=== PATIENT | female | born 1990 | race Caucasian/White ===

== ENCOUNTER → 2016-08-07 | Outpatient (CLI) | payer BC, OTHER ==
[2016-08-07 10:53] LABS: CH 29.3; CHCM 33.5; HCT 31.4 % (34.0-46.0); HDW 2.58; HGB 10.3 gm/dL (11.4-16.0); MCH 28.9 pg (25.0-35.0); MCHC 32.9 g/dL (31.0-37.0); MCV 87.9 fL (80.0-100.0); Mean Platelet Volume 6.2; RBC 3.57 m/uL (3.80-5.40); RDW 13.6 % (11.5-15.5); WBC 15.6 k/uL (3.8-10.6)
[2016-08-07 11:16] LABS: Non-African American GFR(MDRD) >60 (>60 ml/min/1.73 sqM)
[2016-08-07 11:45] LABS: Hepatitis B Surface Ag Index 0.06
[2016-08-08 06:02] LABS: Toxoplasma Antibody (IgG) <3.0 IU/mL (<7.2)
[2016-08-08 07:57] LABS: HIV-1/HIV-2 Ab Screen NONREAC (NON REAC)
== END | disposition home or self-care (01) ==
LOC: LABWHC1 08:47
PROVIDERS: ATTEND Obstetrics & Gynecology
DX: Z34.82 Encounter for supervision of other normal pregnancy, second trimester (principal); Z3A.00 Weeks of gestation of pregnancy not specified
CPT/HCPCS: 36415; 82565; 82950; 85027; 86762; 86777; 86778; 86780; 86850; 86900; 86901; 87340; 87389

== ENCOUNTER → 2016-08-17 | Outpatient (CLI) | payer BC, OTHER ==
[2016-08-17 13:04] LABS: Glucose 3 Hour, Gest 104 mg/dL
== END | disposition home or self-care (01) ==
LOC: LABWHC1 08:38
PROVIDERS: ATTEND Obstetrics & Gynecology
DX: O99.810 Abnormal glucose complicating pregnancy (principal); Z3A.00 Weeks of gestation of pregnancy not specified
CPT/HCPCS: 36415; 82951; 82952

== ENCOUNTER 2016-10-24 10:33 | Outpatient (CLI) | payer BC, OTHER ==
[2016-10-24 10:56] VITALS: PULSE 104; TEMP 97.7
[2016-10-24 12:12] LABS: Appearance,Urine Cloudy (Clear); Bacteria,Urine Occasional /hpf; Bilirubin,Urine Negative (Negative); Glucose,Urine (UA) Negative (Negative); Ketones,Urine Negative (Negative); Leukocyte Esterase,Urine Large (Negative); Mucus,Urine Moderate /hpf; Nitrite,Urine Negative (Negative); PH, Urine 6.5 (5.0-8.0); Particle Count 24742; Protein,Urine 1+ (Negative); RBC,Urine 1 /hpf (0-5); Specific Gravity,Urine 1.023 (1.001-1.035); Squamous Epithelial Cell,Urine 23 /hpf (0-4); UA Billing (MACRO vs. MICRO) MICRO; WBC,Urine 4 /hpf (0-5)
[2016-10-24 12:21] VITALS: BP 166/55; RESP 16
--- NOTE | 2016-11-28 08:26 | P.MSEPDOC ---
Presenting Problems - Arrival Data Date of Arrival on Unit: 10/24/16 Time of Arrival on Unit: 12:25 Mode of Transport: Ambulatory - Complaint OB-Reason for Admission/Chief Complaint: Acute Nausea/Vomiting, Other Comment: threw up at 0800 this am x 1 and last emesis at 5 pm last evining. states small emesis this am but has kept down ice cream sandwich this am. right groin pain when ambulating or sitting upright. Medical History - Information : 3 Para: 2 Term: 2 : 0 Abortions: Spontaneous or Elective: 0 Number of Living Children: 2 - Gestational Age Expected Date of Delivery: 11/26/16 Gestational Age by EUGENE (wks/days): 40 Weeks and 2 Days - History Complications: Prior Comment: c/s with first and for the second. herpes. never has had a lesion. is positive and is in her blood per lab Review of Systems - Review of Systems Constitutional: No problems Breast: No problems ENT: No problems Cardiovascular: No problems Respiratory: No problems Gastrointestinal: No problems Genitourinary: No problems Musculoskeletal: No problems Neurological: No problems Skin: No problems Vital Signs - Temperature Temperature: 97.7 F Temperature Source: Oral - Pulse Right Brachial Pulse Rate: 104 Pulse Assessment Method: Automatic Cuff - Respirations Respiratory Rate: 16 Oxygen Delivery Method: Room Air - Blood Pressure Right Arm Blood Pressure: 166/55 Blood Pressure Mean: 92 Blood Pressure Source: Automatic Cuff Medical Screen Scoring (Pre) - Cervical Exam Dilation: Exam Deferred - Uterine Contractions Frequency: N/A - Maternal Vital Signs Maternal Temperature: N/A Maternal Blood Pressure: N/A Signs of Preeclampsia: N/A Maternal Respirations: N/A - Maternal Trauma Maternal Trauma: N/A - Assessment Baseline FHR: 135 Heart Rate - NICHD Category: Category I (Normal) = 0 NST: Reactive - Total Score Total Score (Pre): 0 - Level of Risk Level of Risk: Low (0-5) Physician Notification (Pre) - Physician Notified Physician Notified Date: 10/24/16 Physician Notified Time: 11:10 Physician/Practitioner Notifed:: [id number] Spoke With: juanito New Order Received: Yes (urinalysis) Medical Screen Scoring (Post) - Cervical Exam Dilation: Exam Deferred - Uterine Contractions Frequency: N/A Duration: N/A Intensity: N/A - Maternal Trauma Maternal Trauma: N/A - Assessment Heart Rate - NICHD Category: Category I (Normal) = 0 NST: Reactive - Total Score Total Score (Post): 0 - Post Treatment Level of Risk Post Treatment Level of Risk: Low (0-5) Physician Notification (Post) - Physician Notified Physician Notified Date: 10/24/16 Physician Notified Time: 12:21 New Order Received: Yes - Notification Comment Comment: discharge home Disposition - Disposition OB Disposition: Discharge to home, Written follow up instructions reviewed I agree with the RN Medical Screening Exam: Yes Risk & Benefit of care provided described in d/c instruction: Yes Diagnosis: DEHYDRATION Additional Diagnoses: third trimester. emesis
== END 2016-10-24 12:22 | disposition home or self-care (01) ==
LOC: FBPOP 10:33
PROVIDERS: ATTEND Obstetrics & Gynecology
DX: O21.9 Vomiting of pregnancy, unspecified (principal); Z3A.40 40 weeks gestation of pregnancy
CPT/HCPCS: 59025; 81001; 99213

== ENCOUNTER 2016-11-25 23:38 | Inpatient (IN) | payer BC, OTHER ==
[~2016-11-25 23:38] MED LIST: BUPIVACAINE (PF) 0.25% 30 ML VIAL ONE; SODIUM CHLORIDE 0.9% 100 ML BAG ONE; fentaNYL (PF) 50 MCG/ML 5 ML AMP ONE
[2016-11-25] MEDS ORDERED: OXYTOCIN 20 UNITS/1000 ML NS 1,000 ML IV SCH (23:45)
[2016-11-25] MEDS ORDERED: TERBUTALINE 1 MG/ML VIAL SQ PRN (23:52)
[2016-11-25] MEDS ORDERED: METHYLERGONOVINE 0.2 MG/ML 1 ML AMP IM PRN (23:52)
[2016-11-25] MEDS ORDERED: LIDOCAINE 1% (PF) 10 MG/ML (30 ML SDV) SQ PRN (23:52)
[2016-11-25] MEDS ORDERED: CARBOPROST TROMETHAMINE 250 MCG/ML 1 ML AMP IM PRN (23:52)
[2016-11-25] MEDS ORDERED: OXYTOCIN 10 UNIT/ML 1 ML VIAL IM PRN (23:52)
[2016-11-26] MEDS: LACTATED RINGERS 1,000 ML IV SCH ×2 (00:27→03:12)
[2016-11-26 00:32] LABS: Basophils # (A) 0.1 k/uL (0-0.2); Basophils % (A) 1 %; CH 28.9; CHCM 33.3; Eosinophils # (A) 0.5 k/uL (0-0.7); Eosinophils % (A) 3 %; HCT 34.4 % (34.0-46.0); HDW 2.67; HGB 11.4 gm/dL (11.4-16.0); Luc # (Auto) 0.23; Luc % (Auto) 1; Lymphocytes # (A) 2.6 k/uL (1.0-4.8); Lymphocytes % (A) 15 %; MCH 28.8 pg (25.0-35.0); MCV 87.3 fL (80.0-100.0); Mean Platelet Volume 6.8; Monocytes # (A) 0.6 k/uL (0-1.0); Monocytes % (A) 4 %; Neutrophils # (A) 13.2 k/uL (1.3-7.7); Neutrophils % (A) 77 %; RBC 3.95 m/uL (3.80-5.40); RDW 14.4 % (11.5-15.5); WBC 17.1 k/uL (3.8-10.6); WBC (Perox) 17.36
--- NOTE | 2016-11-26 01:58 | P.HPOB ---
History of Present Illness H&P Date: 11/26/16 Chief Complaint: SROM 26 year old presents at 40 weeks gestation with spontaneous rupture of membranes. Her water broke at 2200 on 11/25/2016 and clear fluid noted. When she presented to triage she is 3 cm dilated, 70% effaced, -2 station. She is not blayne. heart tones 145-150 with moderate variability and reactive. She did have a section with her first for heart tones, her second was a vaginal delivery. Review of Systems All systems: negative Constitutional: Denies chills, Denies fever Eyes: denies blurred vision, denies pain Ears, nose, mouth and throat: Denies headache, Denies sore throat Cardiovascular: Denies chest pain, Denies shortness of breath Respiratory: Denies cough Gastrointestinal: Denies abdominal pain, Denies diarrhea, Denies nausea, Denies vomiting Genitourinary: Denies dysuria, Denies hematuria Musculoskeletal: Denies myalgias Integumentary: Denies pruritus, Denies rash Neurological: Denies numbness, Denies weakness Psychiatric: Denies anxiety, Denies depression Endocrine: Denies fatigue, Denies weight change Past Medical History Past Medical History: Asthma Additional Past Medical History / Comment(s): Dyslexia. Obstetric history: First was a section due to heart tones are second was a vaginal delivery this is her third . She's had care with Dr. Minaya since 15 weeks gestation. Blood type is B+, antibodies negative, rubella immune, hepatitis B negative, RPR nonreactive, HIV negative. GBS negative. Abnormal 1 hour but normal 3 hour glucose tolerance test. History of Any Multi-Drug Resistant Organisms: None Reported Past Surgical History: Section Past Anesthesia/Blood Transfusion Reactions: No Reported Reaction Past Psychological History: Anxiety, Depression, Panic Disorder Smoking Status: Current every day smoker Past Alcohol Use History: None Reported Past Drug Use History: None Reported - Past Family History Father Family Medical History: Cancer Additional Family Medical History / Comment(s): lung cancer Mother Family Medical History: No Reported History Medications and Allergies Home Medications Medication Instructions Recorded Confirmed Type Pnv,Calcium 72/Iron/Folic Acid 1 tab PO DAILY 03/25/14 11/25/16 History [Pnv Plus Multivit Tab] Ranitidine HCl [Zantac] 150 mg PO HS 11/25/16 11/25/16 History Allergies Allergy/AdvReac Type Severity Reaction Status Date / Time latex Allergy Rash/Hives Verified 11/25/16 23:51 Exam Osteopathic Statement: *. No significant issues noted on an osteopathic structural exam other than those noted in the History and Physical/Consult. - Vital Signs Vital signs: Vital Signs Temp Pulse Resp BP Pulse Ox 11/26/16 00:00 97.3 F L 101 H 16 127/58 98 11/25/16 23:54 97.3 F L 105 H 18 127/58 98 Intake and Output 11/25/16 11/25/16 11/26/16 14:59 22:59 06:59 Other: Weight 97.522 kg Patient Weight 11/26/16 06:59 Weight 97.522 kg Heart: Regular rate and rhythm Lungs: Clear to auscultation bilaterally Abdomen: Soft, nontender Extremities: Negative Homans sign Results Result Diagrams: 11/26/16 00:15 Abnormal Lab Results - Last 24 Hours (Table) 11/26/16 Range/Units 00:15 WBC 17.1 H (3.8-10.6) k/uL Neutrophils # 13.2 H (1.3-7.7) k/uL Assessment and Plan (1) Spontaneous rupture of membranes Status: Acute Plan: 1. Admit to family place 2. Pitocin augmentation if necessary 3. Anticipate normal vaginal delivery
[2016-11-26] MEDS ORDERED: BUPIVACAINE (PF) 0.25% 30 ML VIAL ONE (02:56)
[2016-11-26] MEDS ORDERED: fentaNYL (PF) 50 MCG/ML 5 ML AMP ONE (02:56)
[2016-11-26] MEDS ORDERED: SODIUM CHLORIDE 0.9% 100 ML BAG ONE (02:56)
[2016-11-26] MEDS ORDERED: ACETAMINOPHEN TAB 325 MG TAB PO PRN (04:49)
[2016-11-26] MEDS ORDERED: ZOLPIDEM 5 MG TAB PO PRN (04:49)
[2016-11-26] MEDS ORDERED: Acetaminophen-Codeine 300-30mg TAB PO PRN ×2 (04:49)
[2016-11-26] MEDS ORDERED: SIMETHICONE 80 MG CHEWABLE PO PRN (04:49)
[2016-11-26] MEDS ORDERED: HYDROCORTISONE 2.5% RECTAL CREAM 30 GM TUBE RECTAL PRN (04:49)
[2016-11-26] MEDS ORDERED: LANOLIN CREAM 5 GM TUBE TOPICAL PRN (04:49)
[2016-11-26] MEDS ORDERED: diphenhydrAMINE 50 MG CAP PO PRN (04:49)
[2016-11-26] MEDS ORDERED: WITCH HAZEL 1 EACH MED..PAD TOPICAL PRN (04:49)
[2016-11-26] MEDS ORDERED: diphenhydrAMINE 25 MG CAP PO PRN (04:49)
[2016-11-26] MEDS ORDERED: diphenhydrAMINE 50 MG/ML 1 ML VIAL IVP PRN ×2 (04:49)
[2016-11-26] MEDS ORDERED: BENZOCAINE SPRAY 57GM TOPICAL PRN (04:49)
--- NOTE | 2016-11-26 04:53 | P.PROBDLV ---
Vaginal Delivery Note - . Vaginal Delivery Note: 26-year-old presented at 40 weeks with spontaneous rupture of membranes. Her water broke at 2200 on 11/25/2016. When she presented to labor and delivery she was 3 cm dilated, 70% effaced, -2 station. She is not blayne. By 1 AM Pitocin was started and she started to contract regularly. She did get an epidural and was comfortable. Her cervix was completely dilated at 4:36 AM, she pushed and delivered a viable female over intact perineum under epidural anesthesia at 4:41 AM. Head delivered OA, nuchal cord 1 easily reduced, anterior shoulder delivered gentle downward traction followed by posterior shoulder and rest of body. Nose and mouth bulb suctioned, cord clamped and cut, infant placed on mother's abdomen. Apgars 9, 9 , weight pending. Placenta delivered spontaneously, intact with three-vessel cord at 4:45 AM. Vagina, cervix, perineum were inspected. No lacerations noted. Estimated blood loss 150 mL. Mother and baby in stable condition.
[2016-11-26] MEDS ORDERED: OXYTOCIN 20 UNITS/1000 ML NS 1,000 ML IV SCH (05:00)
[2016-11-26] MEDS ORDERED: BUPIVACAINE (PF) 0.25% 25 ML, fentaNYL (PF) 200 MCG in SODIUM CHLORIDE 0.9% 71 ML EPIDURAL ONE (06:36)
[2016-11-26] MEDS: SENNOSIDES-DOCUSATE SODIUM 1 EACH TAB PO SCH ×2 (07:50→20:25)
[2016-11-26] MEDS: IBUPROFEN 600 MG TAB PO PRN ×2 (07:50→20:13)
[2016-11-26] MEDS ORDERED: FAMOTIDINE 20 MG TAB PO SCH (21:00)
[2016-11-27 00:33] VITALS: TEMP 98.3
--- NOTE | 2016-11-27 07:58 | P.DS ---
Providers Date of admission: 11/25/16 23:49 Expected date of discharge: 11/27/16 Attending physician: Jayce Melgar Primary care physician: Stated None Hospital Course: Patient is a 26-year-old who delivered a viable female on 2016 and requests discharged home today. Her vital signs are stable and she is afebrile. She did successfully for the second time. Her hospital course has been unremarkable. She is ambulating, voiding and she is tolerating her diet. She voices no complaints. She does not request anything for pain. She will take a prescription for a breast pump home. Heart regular, lungs clear, extremities are without pain. Abdomen is soft uterus is firm and lochia is reported light. Assessment day 1. Plan discharged home follow up with me in 4-6 weeks as she would like to schedule her tube ligation prior to having to go back to work. Patient Condition at Discharge: Good Plan - Discharge Summary New Discharge Prescriptions: No Action Pnv,Calcium 72/Iron/Folic Acid [Pnv Plus Multivit Tab] 1 tab PO DAILY Ranitidine HCl [Zantac] 150 mg PO HS Discharge Medication List Pnv,Calcium 72/Iron/Folic Acid [Pnv Plus Multivit Tab] 1 tab PO DAILY 03/25/14 [History] Ranitidine HCl [Zantac] 150 mg PO HS 11/25/16 [History] Follow up Appointment(s)/Referral(s): Jayce Melgar DO [Doctor of Osteopathic Medicine] - 4 Weeks Activity/Diet/Wound Care/Special Instructions: No heavy lifting, limit stairs and driving and pelvic rest. If any high temperatures, heavy bleeding, or severe pain call my office Discharge Disposition: HOME SELF-CARE
[2016-11-27 08:54] VITALS: BP 112/67; PULSE 81; RESP 14
[2016-11-27] MEDS: SENNOSIDES-DOCUSATE SODIUM 1 EACH TAB PO SCH (08:54)
== END 2016-11-27 11:42 | disposition home or self-care (01) | DRG 775 ==
LOC: FBPOP 23:38 → 4FBP 23:49
PROVIDERS: ADMIT Obstetrics & Gynecology; ATTEND Obstetrics & Gynecology
PROC: 10E0XZZ Delivery of Products of Conception, External Approach (ICD-10-PCS; principal; 2016-11-26)
PROC: 3E0S3NZ Introduction of Analgesics, Hypnotics, Sedatives into Epidural Space, Percutaneous Approach (ICD-10-PCS; 2016-11-26)
DX: O34.219 Maternal care for unspecified type scar from previous cesarean delivery (principal); O99.344 Other mental disorders complicating childbirth; F32.9 Major depressive disorder, single episode, unspecified; O69.81X0 Labor and delivery complicated by cord around neck, without compression, not applicable or unspecified; F41.0 Panic disorder [episodic paroxysmal anxiety]; F17.200 Nicotine dependence, unspecified, uncomplicated; O99.52 Diseases of the respiratory system complicating childbirth; N85.8 Other specified noninflammatory disorders of uterus; F41.9 Anxiety disorder, unspecified; O99.334 Smoking (tobacco) complicating childbirth; J45.909 Unspecified asthma, uncomplicated; Z3A.40 40 weeks gestation of pregnancy; Z37.0 Single live birth; Z79.899 Other long term (current) drug therapy; Z91.040 Latex allergy status; Z80.1 Family history of malignant neoplasm of trachea, bronchus and lung; Z86.69 Personal history of other diseases of the nervous system and sense organs
CPT/HCPCS: 59025; 85025; 86850; 86900; 86901; 88307; 99213

== ENCOUNTER → 2018-12-22 | Outpatient (CLI) | payer OTHER ==
[2018-12-22 14:31] LABS: Basophils # (A) 0.1 k/uL (0-0.2); Basophils % (A) 1 %; Eosinophils # (A) 0.9 k/uL (0-0.7); Eosinophils % (A) 6 %; HCT 43.1 % (34.0-46.0); HGB 13.3 gm/dL (11.4-16.0); Lymphocytes # (A) 3.4 k/uL (1.0-4.8); Lymphocytes % (A) 22 %; MCH 25.7 pg (25.0-35.0); MCHC 30.8 g/dL (31.0-37.0); MCV 83.4 fL (80.0-100.0); Mean Platelet Volume 6.5; Monocytes # (A) 0.5 k/uL (0-1.0); Monocytes % (A) 4 %; Neutrophils # (A) 10.2 k/uL (1.3-7.7); Neutrophils % (A) 67 %; Platelet Count 461 k/uL (150-450); RBC 5.17 m/uL (3.80-5.40); RDW 14.2 % (11.5-15.5); WBC 15.2 k/uL (3.8-10.6)
== END | disposition home or self-care (01) ==
LOC: LABPAT 13:01
PROVIDERS: ATTEND Obstetrics & Gynecology
DX: Z01.812 Encounter for preprocedural laboratory examination (principal)
CPT/HCPCS: 36415; 85025

== ENCOUNTER 2019-01-15 06:22 | Day surgery (SDC) | payer OTHER ==
[2019-01-12 12:45] VITALS: BMI 32.3
--- NOTE | 2019-01-14 16:38 | P.HPOB ---
History of Present Illness H&P Date: 01/14/19 Chief Complaint: Cervical dysplasia Patient is a 20-year-old female with KATE-3 on cold possible PE in the office. She is scheduled for LEEP colposcopy in the operating room to resolve issue. Risks/benefits/alternatives to this procedure were discussed with the patient in detail and all questions were answered for her prior to proceeding to the operating room. She is aware of primary risk of bleeding and infection. Potential need for further surgery depending on what the pathology reveals. On physical exam vital signs are stable and afebrile. Heart regular, lungs clear, extremities without pain. Abdomen soft nontender. Pelvic exam is unremarkable other than cervical dysplasia. Assessment cervical dysplasia. Plan LEEP colposcopy Past Medical History Past Medical History: Asthma Additional Past Medical History / Comment(s): Dyslexia. 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 History of Any Multi-Drug Resistant Organisms: None Reported Past Surgical History: Section Past Anesthesia/Blood Transfusion Reactions: No Reported Reaction Smoking Status: Current every day smoker - Past Family History Father Family Medical History: Cancer Additional Family Medical History / Comment(s): lung cancer Mother Family Medical History: No Reported History Medications and Allergies Home Medications Medication Instructions Recorded Confirmed Type Dextroamphetamine/Amphetamine 10 mg PO AC-LUNCH 01/12/19 01/12/19 History [Adderall] Dextroamphetamine/Amphetamine 20 mg PO DAILY 01/12/19 01/12/19 History [Adderall] Etonogestrel [Nexplanon] 1 implant SQ [id number] 01/12/19 01/12/19 History Varenicline [Chantix Continuing 1 mg PO BID 01/12/19 01/12/19 History Pack] Venlafaxine HCl [Effexor XR] 150 mg PO DAILY 01/12/19 01/12/19 History Allergies Allergy/AdvReac Type Severity Reaction Status Date / Time latex Allergy Rash/Hives Verified 01/12/19 12:30 Exam Osteopathic Statement: *. No significant issues noted on an osteopathic structural exam other than those noted in the History and Physical/Consult.
[~2019-01-15 06:22] MED LIST changes: -BUPIVACAINE (PF) 0.25% 30 ML VIAL ONE; +DEXAMETHASONE SOD PHOSPHATE 10 MG/ML 1 ML VIAL IV ONE; +HYDROmorphone 0.5 MG/0.5 ML SYRINGE IVP PRN; +LACTATED RINGERS 1,000 ML IV SCH; +ONDANSETRON 4 MG/2 ML VIAL IVP ONE; +Pre Op ABX Message 1 EACH MISC MISCELLANE ONE; -SODIUM CHLORIDE 0.9% 100 ML BAG ONE; -fentaNYL (PF) 50 MCG/ML 5 ML AMP ONE
[2019-01-15] MEDS ORDERED: LIDOCAINE 1% 20 ML VIAL (10MG/ML) FOR IV START IV ONE (06:49)
[2019-01-15] MEDS ORDERED: MIDAZOLAM 2 MG/2 ML VIAL ONE (07:20)
[2019-01-15] MEDS ORDERED: KETOROLAC 30 MG/ML 1 ML VIAL ONE (07:20)
[2019-01-15] MEDS ORDERED: PROPOFOL 10 MG/ML 20 ML VIAL IV ONE (07:20)
[2019-01-15] MEDS ORDERED: LIDOCAINE 1% INJ 10MG/ML (20 ML MDV) ONE (07:20)
[2019-01-15] MEDS ORDERED: fentaNYL (PF) 50 MCG/ML 2 ML AMP ONE (07:20)
[2019-01-15] MEDS ORDERED: IODINE/POTASS IOD (LUGOLS) BOTTLE TOPICAL ONE ×2 (07:43→10:00)
[2019-01-15] MEDS ORDERED: FERRIC SUBSULFATE (MONSELS) JAR TOPICAL ONE (07:47)
[2019-01-15 08:05] VITALS: TEMP 97.8
--- NOTE | 2019-01-15 08:06 | P.OP ---
Date of Procedure: 01/15/19 Preoperative Diagnosis: Cervical dysplasia Postoperative Diagnosis: Same Procedure(s) Performed: LEEP colposcopy Anesthesia: PATRICIA Surgeon: Jayce Melgar Estimated Blood Loss (ml): 15 Pathology: other (Cervical cone) Condition: stable Disposition: same day Operative Findings: Tissue pathology pending Description of Procedure: Patient was taken to the operating suite where a general anesthetic was found be adequate. She was prepped and draped in the normal sterile fashion placed in dorsal lithotomy position. Initially a coated speculum was inserted into the vagina and the cervix was covered with Lugol solution. Colposcope was then brought in and there is a displaced were identified. A 2 cm loop was then used to excise the cone in 1 piece. It was marked at 12:00. Once accomplished why her was exchanged for ball-tipped and avoid cautery was used to obtain excellent hemostasis on the cervical bed and there is some ablation of tissue around to verify complete desiccation of any potential remaining dysplastic tissue. Once this was accomplished small amount of Monsel solution was applied. Sponge, lap and needle counts were all correct 2. Incidents were then removed and patient was sent to recovery room in stable and satisfactory condition. Plan - Discharge Summary Discharge Rx Participant: No New Discharge Prescriptions: New Ibuprofen [Motrin] 600 mg PO Q6HR PRN #30 tab PRN Reason: Pain No Action Varenicline [Chantix Continuing Pack] 1 mg PO BID Dextroamphetamine/Amphetamine [Adderall] 10 mg PO AC-LUNCH Dextroamphetamine/Amphetamine [Adderall] 20 mg PO DAILY Venlafaxine HCl [Effexor XR] 150 mg PO DAILY Etonogestrel [Nexplanon] 1 implant SQ [id number] Discharge Medication List Dextroamphetamine/Amphetamine [Adderall] 10 mg PO AC-LUNCH 01/12/19 [History] Dextroamphetamine/Amphetamine [Adderall] 20 mg PO DAILY 01/12/19 [History] Etonogestrel [Nexplanon] 1 implant SQ [id number] 01/12/19 [History] Varenicline [Chantix Continuing Pack] 1 mg PO BID 01/12/19 [History] Venlafaxine HCl [Effexor XR] 150 mg PO DAILY 01/12/19 [History] Ibuprofen [Motrin] 600 mg PO Q6HR PRN #30 tab 01/15/19 [Rx] Follow up Appointment(s)/Referral(s): Jayce Melgar DO [Doctor of Osteopathic Medicine] - 2 Weeks Activity/Diet/Wound Care/Special Instructions: No heavy lifting, limited surgery driving today, complete pelvic rest for at least 2 weeks. If any high temperatures, heavy bleeding, or severe pain call my office Discharge Disposition: HOME SELF-CARE
[2019-01-15 09:04] VITALS: RESP 16
[2019-01-15 09:07] VITALS: BP 104/66; PULSE 69
== END 2019-01-15 09:14 | disposition home or self-care (01) ==
LOC: OR 06:22
PROVIDERS: ATTEND Obstetrics & Gynecology
DX: D06.1 Carcinoma in situ of exocervix (principal); J45.909 Unspecified asthma, uncomplicated; F90.9 Attention-deficit hyperactivity disorder, unspecified type; R48.0 Dyslexia and alexia; F41.9 Anxiety disorder, unspecified; F17.200 Nicotine dependence, unspecified, uncomplicated; Z80.1 Family history of malignant neoplasm of trachea, bronchus and lung; Z79.3 Long term (current) use of hormonal contraceptives; Z79.899 Other long term (current) drug therapy; Z91.040 Latex allergy status
CPT/HCPCS: 57461; 81025; 88307; J2250; J1100; J2405; J2001; J3010; J1885; J2704